=== PATIENT | female | born 1935 | race Native Hawaiian/Other Pacific Islander ===

== ENCOUNTER 2017-10-28 22:49 | Inpatient (IN) | payer MEDICARE, OTHER ==
[~2017-10-28] VITALS: Ht 165.1 cm; Wt 59.0 kg
--- NOTE | 2017-10-28 23:03 | NUR ---
PT BIB PA FROM HOME FOR MEDICAL CLEARANCE. PT IS ALREADY ON A 5150 HOLD. PT AMBULATES WITH A WALKER. WALKER IS AT THE BEDSIDE.
--- NOTE | 2017-10-28 23:10 | NUR ---
CALLING REPORT TO DHAVAL CHU
[2017-10-28 23:48] LABS: BASOPHILS % (AUTO) 0.5 % (0.0-2.0); EOSINOPHILS % (AUTO) 0.8 % (0.0-6.0); HEMATOCRIT 37 % (33-45); HEMOGLOBIN 12.7 g/dL (11.5-14.8); LYMPHOCYTES % (AUTO) 34.5 % (20.0-44.0); MEAN CORPUSCULAR HEMOGLOBIN 31 PG (26.0-33.0); MEAN CORPUSCULAR HGB CONC 34 g/dl (31.0-36.0); MEAN CORPUSCULAR VOLUME 90 fL (82-100); MONOCYTES # (AUTO) 0.4 /CMM (0.1-1.30); MONOCYTES % (AUTO) 6.6 % (2.0-12.0); NEUTROPHILS # (AUTO) 3.4 /CMM (1.8-8.9); NEUTROPHILS % (AUTO) 57.6 % (43.0-81.0); PLATELET COUNT (AUTO) 176 /CMM (150-450); RDW COEFFICIENT OF VARIATION 13.8 (11.5-15.0); RED BLOOD CELL COUNT(AUTO) 4.14 MIL/uL (4.0-5.2); WHITE BLOOD COUNT (AUTO) 5.9 K/uL (4.3-11.0)
[2017-10-28 23:49] LABS: APPEARANCE,URINE CLEAR (CLEAR); BILIRUBIN,URINE NEGATIVE (NEGATIVE); BLOOD, URINE TRACE-INTA Ery/uL (NEGATIVE); COLOR,URINE YELLOW (YELLOW); KETONES,URINE TRACE (NEGATIVE); LEUKOCYTE ESTERASE ,URINE TRACE (NEGATIVE); NITRITE, URINE NEGATIVE (NEGATIVE); PH,URINE 6.5 (5.0-8.0); PROTEIN,URINE NEGATIVE (NEGATIVE); UGLUCOSE NEGATIVE (NEGATIVE); UROBILINOGEN,URINE 0.2 EU/dL (0.2)
[2017-10-28 23:56] LABS: BACTERIA,URINE None seen /HPF (None Seen); RBC,URINE 0-2 /HPF (0-2); SQUAMOUS EPITHELIAL CELL,UR Few /HPF (None Seen); WBC,URINE 0-2 /HPF (0-3)
--- NOTE | 2017-10-29 00:05 | NUR ---
PT DENIES ANY MEDICAL HISTORY AND DENIES TAKING ANY HOME MEDICATION.
[2017-10-29 00:06] LABS: CALCIUM, SERUM 9.3 mg/dL (8.5-10.1); CARBON DIOXIDE 30 mmol/L (21-32); CHLORIDE 104 mmol/L (98-107); CREATININE 0.6 mg/dL (0.6-1.3); GLUCOSE 98 mg/dL (74-106); POTASSIUM 4.4 mmol/L (3.5-5.1); SODIUM SERUM 142 mmol/L (136-145); UREA NITROGEN, BLOOD 20 mg/dL (7-18)
[2017-10-29 00:11] LABS: ALANINE AMINOTRANSFERASE 19 U/L (12-78); ALBUMIN 3.9 g/dL (3.4-5.0); ALCOHOL, BLOOD < 3 mg/dL (0-0); ALKALINE PHOSPHATASE 69 U/L (46-116); ASPARTATE AMINOTRANSFERASE 16 U/L (15-37); BILIRUBIN,DIRECT 0.1 mg/dL (0.0-0.2); BILIRUBIN,TOTAL 0.5 mg/dL (0.2-1.0); TOTAL PROTEIN, SERUM 7.6 g/dL (6.4-8.2)
[2017-10-29 00:12] LABS: ACETAMINOPHEN 0 ug/ml (10-30); SALICYLATE 1.2 mg/dL (2.8-20.0)
[2017-10-29] MEDS ORDERED: MAG HYDROX/AL HYDROX/SIMETH 30 ML UDC PO PRN (00:30)
[2017-10-29] MEDS ORDERED: MAGNESIUM HYDROXIDE 30 ML UDC PO PRN (00:30)
[2017-10-29] MEDS ORDERED: LORAZEPAM 0.5 MG TABLET PO PRN (00:30)
[2017-10-29] MEDS ORDERED: ACETAMINOPHEN 325 MG TABLET PO PRN (00:30)
[2017-10-29] MEDS ORDERED: TEMAZEPAM 7.5 MG CAPSULE PO PRN (00:30)
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
--- NOTE | 2017-10-29 03:46 | NUR ---
CALLED [facility] [phone], TO FOLLOW UP THE LIST OF PATIENT'S MEDICATIONS, NO ANSWER TO THIS TIME. WILL TRY AGAIN IN THE MORNING.
--- NOTE | 2017-10-29 06:20 | NUR ---
PATIENT REFUSED MRSA SCREEN DONE.
--- NOTE | 2017-10-29 06:43 | NUR ---
CALLED [facility] AGAIN, KEEPS RINGING AND NOT ANSWERING, NO VOICE MAIL . NEEDS TO FOLLOW-UP LIST OF MEDICATION
[2017-10-29 08:00] VITALS: BP 133/61
[2017-10-29] MEDS ORDERED: METO50TA16 PO (09:21)
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
--- NOTE | 2017-10-29 15:39 | NUR ---
Initial Discharge Note: Patient resides at [facility] [address] [place] [address] / [phone]. RIO called and spoke to office clerk assistant Brendon who verified that patient lived there. Brendon stated that patient has not been evicted but that the rent has been raised and that she is struggling to pay. Brendon stated that patient is welcome back. Brendon provided SW with patient's son's number. RIO called patient's son Tanner [phone]. RIO informed him that patient is at [facility]. Tanner thanked RIO but stated that it was not a good time for him to talk because he was at work. Tanner stated that he will come to [facility] after work for visiting hours.
[2017-10-29 16:00] VITALS: BP 145/64
--- NOTE | 2017-10-29 17:19 | NUR ---
GPS/RN PT REFUSED CT W/O CONTRAST. PT STATES: " IT IS BAD FOR OLD PEOPLE". COMMUNICATED WITH HELP OF NEPALI SPEAKING JINNY PUGA . VICKI RN/CHARGE NURSE WITNESSED THE CONVERSATION
--- NOTE | 2017-10-29 17:54 | NUR ---
PT REFUSED CT SCAN. RN IS AWARE TO REORDER IF NEEDED
[2017-10-29] MEDS: METOPROLOL TARTRATE 50 MG TABLET PO SCH (18:00)
--- NOTE | 2017-10-29 18:15 | NUR ---
GPS/RN PT REFUSED METOPROLOL OFFERED X3
--- NOTE | 2017-10-29 19:24 | NUR ---
GPS/RN ENDORSED TO VLAD PUENTES TO COMPLETE ADMISSION. CHARGE NURSE SUSSY PUENTES WITNESSED
[2017-10-29 20:00] VITALS: BP 146/53
[2017-10-29] MEDS: MIRTAZAPINE 15 MG TABLET PO SCH (22:00)
--- NOTE | 2017-10-29 22:43 | NUR ---
Patient refused remeron 7.5 mg due for 2200 pm, patient stated, " NO ", EXPLAINED benefits X2, STILL REFUSED.Clerical Specialist made aware.
--- NOTE | 2017-10-29 22:48 | NUR ---
FULL ADMISSION DOCUMENTATION DONE LAST NIGHT,10/29/2017. PATIENT HAS NO PAST MEDICAL HISTORY, DHAVAL PUENTE WANTED ME TO ENTER AND ANSWER NO TO ALL MEDICAL QUESTIONNAIRES. AND I DID.
[2017-10-30 07:32] LABS: BASOPHILS % (AUTO) 0.4 % (0.0-2.0); EOSINOPHILS # (AUTO) 0.1 /CMM (0.0-0.7); EOSINOPHILS % (AUTO) 1.5 % (0.0-6.0); HEMATOCRIT 37 % (33-45); HEMOGLOBIN 12.7 g/dL (11.5-14.8); LYMPHOCYTES # (AUTO) 1.9 /CMM (0.8-4.8); LYMPHOCYTES % (AUTO) 35.7 % (20.0-44.0); MEAN CORPUSCULAR HEMOGLOBIN 31 PG (26.0-33.0); MEAN CORPUSCULAR HGB CONC 35 g/dl (31.0-36.0); MEAN CORPUSCULAR VOLUME 91 fL (82-100); MONOCYTES # (AUTO) 0.4 /CMM (0.1-1.30); NEUTROPHILS # (AUTO) 2.9 /CMM (1.8-8.9); NEUTROPHILS % (AUTO) 55.4 % (43.0-81.0); PLATELET COUNT (AUTO) 170 /CMM (150-450); RDW COEFFICIENT OF VARIATION 13.6 (11.5-15.0); RED BLOOD CELL COUNT(AUTO) 4.07 MIL/uL (4.0-5.2); WHITE BLOOD COUNT (AUTO) 5.3 K/uL (4.3-11.0)
[2017-10-30 07:55] LABS: ALANINE AMINOTRANSFERASE 17 U/L (12-78); ALBUMIN 3.4 g/dL (3.4-5.0); ALKALINE PHOSPHATASE 65 U/L (46-116); ASPARTATE AMINOTRANSFERASE 17 U/L (15-37); BILIRUBIN,TOTAL 0.5 mg/dL (0.2-1.0); CALCIUM, SERUM 8.7 mg/dL (8.5-10.1); CARBON DIOXIDE 28 mmol/L (21-32); CHLORIDE 105 mmol/L (98-107); CREATININE 0.6 mg/dL (0.6-1.3); GLUCOSE 92 mg/dL (74-106); POTASSIUM 3.7 mmol/L (3.5-5.1); SODIUM SERUM 143 mmol/L (136-145); TOTAL PROTEIN, SERUM 7.1 g/dL (6.4-8.2); UREA NITROGEN, BLOOD 15 mg/dL (7-18)
[2017-10-30 07:56] LABS: CHOLESTEROL 202 mg/dL (<200); HDL CHOLESTEROL 73 mg/dL (40-60); LDL 117 mg/dL (0-99); TRIGLYCERIDES 77 mg/dL (30-150)
[2017-10-30 08:00] VITALS: BP 129/68
[2017-10-30] MEDS: METOPROLOL TARTRATE 50 MG TABLET PO SCH ×2 (09:00→17:00)
--- NOTE | 2017-10-30 10:22 | NUR ---
GPS/RN PT REFUSED METOPROLOL OFFERED X3. COMMUNICATED VIA FABRICIO PUGA
[2017-10-30 16:00] VITALS: BP 125/65
[2017-10-30 20:00] VITALS: BP 154/67
[2017-10-30] MEDS: MIRTAZAPINE 15 MG TABLET PO SCH (22:00)
--- NOTE | 2017-10-30 22:09 | NUR ---
Patient refused remeron 7.5 mg tab, second night that she refused. Will notify MD if she will refused for 3 consecutive days.
[2017-10-31 08:00] VITALS: BP 153/84
[2017-10-31] MEDS: METOPROLOL TARTRATE 50 MG TABLET PO SCH ×2 (08:29→17:20)
[2017-10-31 16:00] VITALS: BP 142/61
[2017-10-31 19:43] VITALS: BP 159/86
[2017-10-31] MEDS: MIRTAZAPINE 15 MG TABLET PO SCH (21:13)
--- NOTE | 2017-10-31 21:13 | NUR ---
ECG-WC-N[facility]: Patient refused remeron 7.5 mg tab, third night that she refused. Will endorse to incoming staff.
[2017-11-01 08:00] VITALS: BP 171/84
[2017-11-01] MEDS: METOPROLOL TARTRATE 50 MG TABLET PO SCH ×2 (08:50→16:28)
[2017-11-01] MEDS ORDERED: AMLODIPINE BESYLATE 5 MG TABLET PO SCH (09:00)
[2017-11-01 09:38] VITALS: BP 111/62
[2017-11-01 16:00] VITALS: BP 114/65
--- NOTE | 2017-11-01 19:30 | NUR ---
GPS RN NOTE, RECEIVED PATIENT AWAKE AND IN BED, NO S/S OR COMPLAINTS OF PAIN AT THIS TIME. PATIENT IS DISPLAYING NO S/S OF APPARENT DISTRESS AT THIS TIME. PATIENT BREATHING IS UNLABORED WITH EQUAL RISE AND FALL OF THE CHEST. PATIENT IS ALERT AND ORIENTED X 2 ON ROOM AIR WITH A SPO2 OF 98%. PATIENT IS MEDICATION COMPLIANT, OMANI SPEAKING ONLY, CONFUSED AT TIMES, ANXIOUS, AND NEEDS REORIENTATION. PATIENT DENIES SUICIDE IDEATIONS AND HOMICIDAL IDEATIONS AT THIS TIME. PATIENT ASSISTED WITH TURNING AND REPOSITIONING Q2HR AND PRN FOR COMFORT AND CIRCULATION. PATIENT HAS NO NEEDS AT THIS TIME. PATIENT EDUCATED ON THE USE OF THE CALL OLSEN. PATIENT SIDE RAILS ARE UP X 2, BED IS LOCKED AND LOW, AND I WILL CONTINUE TO MONITOR THIS PATIENT Q 15 MIN WITH THE HELP OF STAFF.
[2017-11-01 19:46] VITALS: BP 126/63
--- NOTE | 2017-11-01 20:26 | NUR ---
GPS RN NOTE, MD ORDER TO DC HOLD AND DC PATIENT TO HOME WITH HOME HEALTH, MEDICAL MD MADE AWARE AND AGREES WITH DISCHARGE. PATIENT STABLE FOR DISCHARGE WITH STABLE VITAL SIGNS. PATIENT DENIES SI AND HI AT THIS TIME. PATIENT REFUSING SKIN ASSESSMENT. PATIENT UNABLE TO SIGN PAPERWORK ALTHOUGH WITNESS / COSIGNER WAS PRESENT. ALL BELONGINGS FROM SAFE AND ROOM SIGNED FOR BY PATIENTS SON (LUAN PAREKH ) AND DISCHARGED WITH PATIENT. PATIENT DOES NOT QUALIFY FOR MRSA SWAB DUE TO ADMISSION BEING LESS THAN 21 DAYS. MEDICATIONS WERE RECONCILED WITH PSYCH AND MEDICAL MDS. PATIENT DISCHARGED TO HOME WITH LUAN PAREKH PATIENT SON IN STABLE CONDITION WITH ALL QUESTION ANSWERED.
--- NOTE | 2017-11-02 09:36 | NUR ---
RIO faxed home health referral to [facility] [phone] / fax # [phone]
--- NOTE | 2017-11-02 14:18 | NUR ---
Discharge Note: Patient was discharged to her residence [facility] [address] [place] [address] / [phone]. Patient was picked up by son Tanner [phone] in his private vehicle. Patient and son were both in agreement with the discharge plan. Per the son, he lives ten minutes away and frequently visits his mother. Son stated that he is able to care for her and that she has a good support system. On the day of discharge, patient was calm and cooperative. Patient denied suicidal and homicidal ideation. Patient denied hallucinations. Patient will be seen by her psychiatrist Dr. Emmanuel, [address] [id number] [place]. [id number]; on November 17, 2017 at 1:45pm. Patient was also referred to [facility]; [facility] [place] [address]; to see an demo specialist. RIO Xiong contacted facility to make an appointment for pt, however RIO Xiong was informed that pt needed to call on her own to schedule an appointment.
== END 2017-11-01 20:39 | disposition home or self-care (01) | DRG 885 ==
LOC: ER 22:54 → GPS 23:59
PROVIDERS: ADMIT Psychiatry & Neurology Psychosomatic Medicine; ATTEND Nurse Practitioner Acute Care
DX: F33.2 Major depressive disorder, recurrent severe without psychotic features (principal); R45.851 Suicidal ideations; I10 Essential (primary) hypertension
CPT/HCPCS: 36415; 80048-TC; 80053-TC; 80061-TC; 80076-TC; 80305; 81000-TC; 85025-TC; 87081-TC; A4606; G0480; Z7610